=== PATIENT | female | born 1945 | race Caucasian/White ===

== ENCOUNTER → 2016-12-22 | Outpatient (CLI) | payer OTHER ==
[~2016-12-22] MED LIST: ACT35 PO; BNT10 PO; CLTP PO; HYDC25 PO; PANT40TA PO; POTA20TA16 PO; PRED20TA PO; SYN25 PO
[2016-12-22 17:15] LABS: ALT/SGPT 84 U/L (12-78); BLOOD UREA NITROGEN 17 mg/dl (7-18); BUN/CREATININE RATIO 19.4 (10-20); CALCIUM 9.4 mg/dl (8.5-10.1); CARBON DIOXIDE 28 mmol/L (21-32); CHLORIDE 103 mmol/L (98-107); CREATININE 0.89 mg/dl (0.60-1.20); GLUCOSE 86 mg/dl (70-99); POTASSIUM 3.7 mmol/L (3.5-5.1); SODIUM 140 mmol/L (136-145)
[2016-12-22 17:25] LABS: ALB/GLOB RATIO 0.9 (0.9-2); ALKALINE PHOSPHATASE 60 U/L (45-117); AST/SGOT 45 U/L (15-37)
== END | disposition home or self-care (01) ==
LOC: C.LAB 15:25
PROVIDERS: ATTEND Internal Medicine Gastroenterology
DX: K75.4 Autoimmune hepatitis (principal); E03.9 Hypothyroidism, unspecified